=== PATIENT | female | born 1965 | race Two or more races ===

== ENCOUNTER 2021-10-25 00:33 | Emergency (ER) | payer BC ==
[~2021-10-25] VITALS: Ht 160 cm; Wt 86.2 kg
[~2021-10-25 00:33] MED LIST: CEFT1INJ33 IV; FENO145T27 PO; GLIM4TAB42 PO; METF-370 PO; NIFE90TA49 PO; SPIR50TA5 PO
[2021-10-25] MEDS ORDERED: NIFEdipine 10 MG CAP PO ONE ×2 (01:15→02:15)
[2021-10-25 01:30] LABS: Basophils # (auto) 0.1 10 ^3/uL (0-0.2); Basophils % (auto) 1.4 % (0.0-2.0); Eosinophils # (auto) 0.1 10 ^3/uL (0-0.8); Eosinophils % (auto) 1.9 % (0.0-7.0); Hematocrit 42.6 % (36.0-46.0); Hemoglobin 15.1 g/dL (12.2-16.2); Lymphocytes # (auto) 2.7 10 ^3/uL (0.4-5.4); Lymphocytes % (auto) 34.9 % (10.0-50.0); Mean Corpuscular Hemoglobin 31.5 pg (28.0-32.0); Mean Corpuscular Hgb Conc. 35.4 g/dL (32.0-36.0); Mean Corpuscular Volume 88.9 fL (80.0-100.0); Monocytes # (auto) 0.6 10 ^3/uL (0-1.3); Monocytes % (auto) 7.6 % (0.0-12.0); Neutrophils # (auto) 4.2 10 ^3/uL (1.6-8.6); Neutrophils % (auto) 54.2 % (37.0-80.0); Nucleated Red Blood Cells % 0.1 %; Red Cell Distribution Width 13.6 % (11.8-14.3); White Blood Cell 7.7 10^3/uL (4.4-10.8)
[2021-10-25 01:49] LABS: Albumin 3.3 g/dL (3.4-5.0); Calcium 8.8 mg/dL (8.5-10.1); Potassium 4.1 mmol/L (3.5-5.1)
[2021-10-25 01:54] LABS: BUN/Creatinine Ratio 18.9; Bilirubin, Total 0.4 mg/dL (0.2-1.0); Total Protein 7.4 g/dL (6.4-8.2)
[2021-10-25] MEDS ORDERED: SODIUM CHLORIDE 0.9% 1,000 ML IV ONE (02:15)
[2021-10-25] MEDS ORDERED: ENALAPRILAT 1.25 MG/ML-1ML VIAL IV ONE (02:15)
[2021-10-25] MEDS ORDERED: InsuLIN REG 1unit/0.01ml Soln (100units/ml) IV ONE (02:15)
[2021-10-25 04:00] VITALS: BP 168/90
== END 2021-10-25 04:18 | disposition home or self-care (01) ==
LOC: ER 00:39
DX: I10 Essential (primary) hypertension (principal); E11.9 Type 2 diabetes mellitus without complications; E78.5 Hyperlipidemia, unspecified
CPT/HCPCS: 36415; 71045; 80053; 82962; 83880; 84484; 85025; 93005; 96361; 96374; 96375; 99285; J1815; J7030

== ENCOUNTER → 2021-12-21 | Outpatient (CLI) | payer BC ==
[2021-12-21 07:57] LABS: Basophils # (auto) 0.1 10 ^3/uL (0-0.2); Basophils % (auto) 1.5 % (0.0-2.0); Eosinophils # (auto) 0.1 10 ^3/uL (0-0.8); Eosinophils % (auto) 1.9 % (0.0-7.0); Hematocrit 42.7 % (36.0-46.0); Hemoglobin 14.7 g/dL (12.2-16.2); Lymphocytes # (auto) 2.1 10 ^3/uL (0.4-5.4); Lymphocytes % (auto) 31.8 % (10.0-50.0); Mean Corpuscular Hemoglobin 30.2 pg (28.0-32.0); Mean Corpuscular Hgb Conc. 34.5 g/dL (32.0-36.0); Mean Corpuscular Volume 87.6 fL (80.0-100.0); Monocytes # (auto) 0.4 10 ^3/uL (0-1.3); Monocytes % (auto) 6.6 % (0.0-12.0); Neutrophils # (auto) 3.8 10 ^3/uL (1.6-8.6); Neutrophils % (auto) 58.2 % (37.0-80.0); Nucleated Red Blood Cells % 0.2 %; Red Blood Cells 4.87 10^6/uL (4.0-5.20); Red Cell Distribution Width 13.4 % (11.8-14.3); White Blood Cell 6.5 10^3/uL (4.4-10.8)
[2021-12-21 08:21] LABS: Albumin 3.7 g/dL (3.4-5.0); Calcium 9.5 mg/dL (8.5-10.1); Potassium 4.6 mmol/L (3.5-5.1)
[2021-12-21 08:26] LABS: BUN/Creatinine Ratio 23.1; Bilirubin, Total 0.4 mg/dL (0.2-1.0); Total Protein 7.6 g/dL (6.4-8.2)
[2021-12-22 08:39] LABS: Urine Bacteria FEW /hpf (None Seen); Urine Blood Negative /uL (Negative); Urine Mucus FEW (None Seen); Urine Specific Gravity 1.012 (1.001-1.035); Urine WBC 41 /hpf (0 - 5)
== END | disposition home or self-care (01) ==
LOC: LAB 06:58
PROVIDERS: ATTEND Student in an Organized Health Care Education/Training Program
DX: E11.9 Type 2 diabetes mellitus without complications (principal); I10 Essential (primary) hypertension
CPT/HCPCS: 36415; 80053; 80061; 81001; 82043; 83036; 84443; 85025

== ENCOUNTER 2022-03-04 08:19 | Inpatient (IN) | payer BC ==
[~2022-03-04] VITALS: Ht 160 cm; Wt 89.0 kg
[2022-03-04 09:11] LABS: Basophils # (auto) 0.1 10 ^3/uL (0-0.2); Eosinophils # (auto) 0.1 10 ^3/uL (0-0.8); Hematocrit 45.3 % (36.0-46.0); Lymphocytes # (auto) 2.5 10 ^3/uL (0.4-5.4); Lymphocytes % (auto) 21.9 % (10.0-50.0); Mean Corpuscular Hgb Conc. 35.4 g/dL (32.0-36.0); Mean Corpuscular Volume 84.6 fL (80.0-100.0); Monocytes # (auto) 0.6 10 ^3/uL (0-1.3); Neutrophils % (auto) 71.1 % (37.0-80.0); Nucleated Red Blood Cells % 2.3 %; Red Blood Cells 5.35 10^6/uL (4.0-5.20); White Blood Cell 11.3 10^3/uL (4.4-10.8)
[2022-03-04 09:30] LABS: BUN/Creatinine Ratio 18.1; Calcium 9.4 mg/dL (8.5-10.1); Potassium 3.9 mmol/L (3.5-5.1)
[2022-03-04] MEDS ORDERED: SODIUM CHLORIDE 0.9% 1,000 ML IV ONE ×2 (10:00→12:30)
[2022-03-04 11:38] LABS: Albumin 3.8 g/dL (3.4-5.0); Calcium 9.7 mg/dL (8.5-10.1); Magnesium 1.8 mg/dL (1.6-2.6)
[2022-03-04 11:40] LABS: BUN/Creatinine Ratio 16.9
[2022-03-04 11:53] LABS: Bilirubin, Total 0.6 mg/dL (0.2-1.0); Total Protein 7.9 g/dL (6.4-8.2)
[2022-03-04] MEDS ORDERED: SODIUM CHLORIDE 0.9% 2,000 ML IV ONE (12:15)
[2022-03-04] MEDS ORDERED: INSULIN LISPRO (HUMAN) 100 UNITS/ML ML SC ONE (12:15)
[2022-03-04] MEDS ORDERED: DEXTROSE (50%) 50ML SYRG IV PRN (12:30)
[2022-03-04] MEDS ORDERED: cefTRIAXone 1GM/50ML D5W 50 ML IV ONE (12:45)
[2022-03-04] MEDS ORDERED: LORazepam 2MG/ML-1ML VIAL IV PRN (15:45)
[2022-03-04 15:57] LABS: Cholesterol 197 mg/dL (< 200)
[2022-03-04 16:00] LABS: HDL Cholesterol 40 mg/dL (40-59); Triglycerides 422 mg/dL (< 150)
[2022-03-04] MEDS: InsuLIN REG 1unit/0.01ml Soln (100units/ml) SC SCH ×2 (17:00→21:46)
[2022-03-04 17:10] VITALS: BP 160/80
[2022-03-04] MEDS: ACCU-CHEK COMFORT CURVE STRIP VI SCH ×2 (18:15→21:56)
[2022-03-04 18:36] VITALS: BP 118/72
[2022-03-04] MEDS ORDERED: LISI20TA28 PO (19:59)
[2022-03-04] MEDS ORDERED: ATOR40TA52 PO (20:06)
[2022-03-04] MEDS ORDERED: INSUINJ37 SC (20:06)
[2022-03-04] MEDS ORDERED: LISI40TA11 PO (20:06)
[2022-03-04 20:20] VITALS: BP 118/72
[2022-03-04 21:34] VITALS: BP 154/95
[2022-03-04] MEDS: ATORVASTATIN 20 MG TAB PO SCH (21:37)
[2022-03-05] VITALS (9 sets, daily range): BP systolic 133–195; BP diastolic 74–105
[2022-03-05] MEDS: hydrALAZINE HCL 20 MG/ML VL IV PRN ×2 (04:54→17:58)
[2022-03-05] MEDS: InsuLIN REG 1unit/0.01ml Soln (100units/ml) SC SCH ×4 (06:36→21:44)
[2022-03-05] MEDS: ACCU-CHEK COMFORT CURVE STRIP VI SCH ×4 (06:37→21:49)
[2022-03-05] MEDS: metFORMIN HYDROCHLORIDE 500 MG TAB PO SCH ×2 (06:37→17:55)
[2022-03-05] MEDS: GLIMEPIRIDE 2 MG TAB PO SCH ×2 (06:38→17:51)
[2022-03-05] MEDS: ENOXAPARIN SOD 40 MG/0.4 ML SYRINGE SC SCH (09:58)
[2022-03-05] MEDS: cefTRIAXone 1GM/50ML D5W 50 ML IV SCH (09:59)
[2022-03-05] MEDS: ASPirin 81 mg TAB PO SCH (09:59)
[2022-03-05] MEDS ORDERED: cloNIDine HCL 0.1 MG TAB PO ONE (12:45)
[2022-03-05 13:24] LABS: Urine Bacteria FEW /hpf (None Seen); Urine Blood Negative /uL (Negative); Urine Mucus FEW (None Seen); Urine Specific Gravity 1.019 (1.001-1.035)
[2022-03-05 13:29] LABS: Urine WBC None Seen /hpf (0 - 5)
[2022-03-05] MEDS ORDERED: NIFEdipine ER 30 MG TAB PO SCH (13:30)
[2022-03-05 13:39] LABS: Alcohol, Urine < 3.0 mg/dL (0-10); Amphetamine Screen, Urine NEGATIVE (NEGATIVE); Barbiturate Scree,Urine NEGATIVE (NEGATIVE); Benzodiazephine Screen, Urine NEGATIVE (NEGATIVE); Cannabinoid Screen, Urine NEGATIVE (NEGATIVE); Cocaine Screen, Urine NEGATIVE (NEGATIVE); Opiate Scree,Urine NEGATIVE (NEGATIVE); Phencyclidine Screen, Urine NEGATIVE (NEGATIVE)
[2022-03-05] MEDS: LISINOPRIL 20 MG TAB PO SCH (14:11)
[2022-03-05] MEDS ORDERED: NIFE1TAB30 PO (14:14)
[2022-03-05] MEDS: NIFEdipine ER 30 MG TAB PO SCH (14:17)
[2022-03-05] MEDS: ATORVASTATIN 20 MG TAB PO SCH (21:47)
[2022-03-05] MEDS ORDERED: METOPROLOL TARTRATE 50 MG TAB PO SCH (22:00)
[2022-03-05] MEDS ORDERED: InsuLIN REG 1unit/0.01ml Soln (100units/ml) IV ONE (23:00)
[2022-03-06 05:00] VITALS: BP 135/79
[2022-03-06] MEDS: GLIMEPIRIDE 2 MG TAB PO SCH ×2 (06:25→18:00)
[2022-03-06] MEDS: InsuLIN REG 1unit/0.01ml Soln (100units/ml) SC SCH ×4 (06:27→22:25)
[2022-03-06] MEDS ORDERED: ACETAMINOPHEN 500 MG TAB PO PRN (06:30)
[2022-03-06] MEDS: ACCU-CHEK COMFORT CURVE STRIP VI SCH ×4 (06:34→22:25)
[2022-03-06] MEDS: metFORMIN HYDROCHLORIDE 500 MG TAB PO SCH ×2 (06:34→18:01)
[2022-03-06] MEDS: LISINOPRIL 20 MG TAB PO SCH (10:27)
[2022-03-06] MEDS: NIFEdipine ER 30 MG TAB PO SCH (10:28)
[2022-03-06] MEDS: ENOXAPARIN SOD 40 MG/0.4 ML SYRINGE SC SCH (10:28)
[2022-03-06] MEDS: cefTRIAXone 1GM/50ML D5W 50 ML IV SCH (10:29)
[2022-03-06] MEDS: ASPirin 81 mg TAB PO SCH (10:29)
[2022-03-06] MEDS: ATORVASTATIN 20 MG TAB PO SCH ×2 (11:30→22:25)
[2022-03-06 17:00] VITALS: BP 145/73
[2022-03-06] MEDS: cloNIDine HCL 0.1 MG TAB PO PRN (21:52)
[2022-03-06 22:00] VITALS: BP 161/80
[2022-03-06 23:30] VITALS: BP 129/77
[2022-03-07 03:27] LABS: Basophils # (auto) 0.1 10 ^3/uL (0-0.2); Basophils % (auto) 0.9 % (0.0-2.0); Eosinophils # (auto) 0.2 10 ^3/uL (0-0.8); Eosinophils % (auto) 1.9 % (0.0-7.0); Hemoglobin 13.3 g/dL (12.2-16.2); Lymphocytes # (auto) 2.4 10 ^3/uL (0.4-5.4); Lymphocytes % (auto) 28.6 % (10.0-50.0); Mean Corpuscular Hemoglobin 30.3 pg (28.0-32.0); Mean Corpuscular Hgb Conc. 35.9 g/dL (32.0-36.0); Mean Corpuscular Volume 84.3 fL (80.0-100.0); Monocytes # (auto) 0.4 10 ^3/uL (0-1.3); Neutrophils # (auto) 5.3 10 ^3/uL (1.6-8.6); Neutrophils % (auto) 63.6 % (37.0-80.0); Nucleated Red Blood Cells % 0.1 %; Red Blood Cells 4.39 10^6/uL (4.0-5.20); Red Cell Distribution Width 13.9 % (11.8-14.3); White Blood Cell 8.3 10^3/uL (4.4-10.8)
[2022-03-07 03:47] LABS: Albumin 2.8 g/dL (3.4-5.0); BUN/Creatinine Ratio 26.7; Calcium 8.5 mg/dL (8.5-10.1); Potassium 4.2 mmol/L (3.5-5.1)
[2022-03-07 03:48] LABS: INR 0.96 (0.9-1.15); Partial Thromboplastin Time 25.4 sec (23.6-33.0)
[2022-03-07 03:50] LABS: Bilirubin, Total 0.4 mg/dL (0.2-1.0)
[2022-03-07 05:00] VITALS: BP 129/78
[2022-03-07] MEDS: InsuLIN REG 1unit/0.01ml Soln (100units/ml) SC SCH ×4 (06:09→22:50)
[2022-03-07] MEDS: metFORMIN HYDROCHLORIDE 500 MG TAB PO SCH ×2 (06:25→16:49)
[2022-03-07] MEDS: GLIMEPIRIDE 2 MG TAB PO SCH ×2 (06:26→16:49)
[2022-03-07] MEDS: ACCU-CHEK COMFORT CURVE STRIP VI SCH ×4 (06:27→22:47)
[2022-03-07 09:00] VITALS: BP 138/76
[2022-03-07] MEDS: cefTRIAXone 1GM/50ML D5W 50 ML IV SCH (09:17)
[2022-03-07 13:00] VITALS: BP 145/75
[2022-03-07] MEDS ORDERED: MIDAZOLAM HCL 2MG/2ML 2ml VIAL (1mg/ml) IV ONE (14:00)
[2022-03-07 16:16] VITALS: BP 154/79
[2022-03-07] MEDS: ASPirin 81 mg TAB PO SCH (16:36)
[2022-03-07] MEDS: LISINOPRIL 20 MG TAB PO SCH (16:36)
[2022-03-07] MEDS: NIFEdipine ER 30 MG TAB PO SCH (16:36)
[2022-03-07] MEDS: ENOXAPARIN SOD 40 MG/0.4 ML SYRINGE SC SCH (16:37)
[2022-03-07 17:00] VITALS: BP 149/82
[2022-03-07] MEDS: cloNIDine HCL 0.1 MG TAB PO PRN (21:02)
[2022-03-07 22:00] VITALS: BP 162/75
[2022-03-07] MEDS: ATORVASTATIN 20 MG TAB PO SCH (22:47)
[2022-03-08 04:36] VITALS: BP 113/68
[2022-03-08] MEDS: InsuLIN REG 1unit/0.01ml Soln (100units/ml) SC SCH ×2 (06:12→12:03)
[2022-03-08 08:45] VITALS: BP 152/88
[2022-03-08] MEDS: NIFEdipine ER 30 MG TAB PO SCH (09:41)
[2022-03-08] MEDS: LISINOPRIL 20 MG TAB PO SCH (09:42)
[2022-03-08] MEDS: ASPirin 81 mg TAB PO SCH (09:42)
[2022-03-08] MEDS: ENOXAPARIN SOD 40 MG/0.4 ML SYRINGE SC SCH (09:42)
[2022-03-08] MEDS: ACCU-CHEK COMFORT CURVE STRIP VI SCH (12:02)
[2022-03-08 12:43] VITALS: BP 143/86
[2022-03-08 13:25] VITALS: BP 143/86
== END 2022-03-08 16:07 | disposition home or self-care (01) | DRG 65 ==
LOC: ER 08:19 → TELE 12:23 → TELE-WESTW 17:41
PROVIDERS: ADMIT Registered Nurse; ATTEND Family Medicine
PROC: B24BZZ4 Ultrasonography of Heart with Aorta, Transesophageal (ICD-10-PCS; principal; 2022-03-07)
DX: I63.9 Cerebral infarction, unspecified (principal); E87.2 Acidosis; G81.94 Hemiplegia, unspecified affecting left nondominant side; I10 Essential (primary) hypertension; E66.9 Obesity, unspecified; Z20.822 Contact with and (suspected) exposure to COVID-19; E11.21 Type 2 diabetes mellitus with diabetic nephropathy; E11.40 Type 2 diabetes mellitus with diabetic neuropathy, unspecified; E11.65 Type 2 diabetes mellitus with hyperglycemia; E78.00 Pure hypercholesterolemia, unspecified; E78.5 Hyperlipidemia, unspecified; F17.200 Nicotine dependence, unspecified, uncomplicated; G47.10 Hypersomnia, unspecified; R29.700 NIHSS score 0; Z68.34 Body mass index [BMI] 34.0-34.9, adult; Z79.4 Long term (current) use of insulin; Z79.82 Long term (current) use of aspirin; Z79.899 Other long term (current) drug therapy; Z82.49 Family history of ischemic heart disease and other diseases of the circulatory system; Z83.3 Family history of diabetes mellitus
CPT/HCPCS: 36415; 36600; 70450; 70551; 71045; 80048; 80053; 80061; 80307; 81001; 82010; 82805; 82962; 83735; 83880; 84484; 84702; 85025; 85610; 85730; 87040; 93005; 93306; 93312; 93886; 94660; 96361; 96365; 97163; 99152; 99291; G0378; J0696; J1815; J2250

== ENCOUNTER → 2022-05-17 | Outpatient (CLI) | payer BC ==
[~2022-05-17] MED LIST changes: +ATOR40TA52 PO; -FENO145T27 PO; +INSUINJ37 SC; +LISI40TA11 PO; +NIFE1TAB30 PO; -NIFE90TA49 PO; -SPIR50TA5 PO
[2022-05-17 10:03] LABS: Basophils # (auto) 0.1 10 ^3/uL (0-0.2); Basophils % (auto) 1.3 % (0.0-2.0); Eosinophils # (auto) 0.2 10 ^3/uL (0-0.8); Eosinophils % (auto) 2.7 % (0.0-7.0); Hematocrit 40.7 % (36.0-46.0); Hemoglobin 14.6 g/dL (12.2-16.2); Lymphocytes # (auto) 2.2 10 ^3/uL (0.4-5.4); Lymphocytes % (auto) 29.2 % (10.0-50.0); Mean Corpuscular Hemoglobin 30.9 pg (28.0-32.0); Mean Corpuscular Hgb Conc. 35.8 g/dL (32.0-36.0); Mean Corpuscular Volume 86.2 fL (80.0-100.0); Monocytes # (auto) 0.5 10 ^3/uL (0-1.3); Monocytes % (auto) 6.3 % (0.0-12.0); Neutrophils # (auto) 4.6 10 ^3/uL (1.6-8.6); Neutrophils % (auto) 60.5 % (37.0-80.0); Nucleated Red Blood Cells % 0.1 %; Red Blood Cells 4.72 10^6/uL (4.0-5.20); Red Cell Distribution Width 14.1 % (11.8-14.3); White Blood Cell 7.6 10^3/uL (4.4-10.8)
[2022-05-17 13:22] LABS: Anion Gap 11 (5-15); Blood Urea Nitrogen 19 mg/dL (7-18); Calcium 8.7 mg/dL (8.5-10.1); Carbon Dioxide 24 mmol/L (21-32); Chloride 102 mmol/L (98-107); Glucose 321 mg/dL (74-106); Potassium 3.8 mmol/L (3.5-5.1); Sodium 137 mmol/L (136-145)
[2022-05-17 13:25] LABS: BUN/Creatinine Ratio 31.1; Cholesterol 154 mg/dL (< 200); GFR African American 130 mL/min; GFR Non-African American 108 mL/min; HDL Cholesterol 32 mg/dL (40-59); Triglycerides 487 mg/dL (< 150)
[2022-05-17 14:58] LABS: Urine Blood Negative /uL (Negative); Urine Specific Gravity 1.036 (1.001-1.035)
== END | disposition home or self-care (01) ==
LOC: LAB 07:55
PROVIDERS: ATTEND Student in an Organized Health Care Education/Training Program
DX: Z12.11 Encounter for screening for malignant neoplasm of colon (principal); E11.9 Type 2 diabetes mellitus without complications; I10 Essential (primary) hypertension
CPT/HCPCS: 36415; 80048; 80061; 81003; 82043; 82274; 83036; 85025

== ENCOUNTER → 2022-09-14 | Outpatient (CLI) | payer BC ==
[2022-09-14 07:28] LABS: Basophils # (auto) 0.1 10 ^3/uL (0-0.2); Eosinophils # (auto) 0.2 10 ^3/uL (0-0.8); Eosinophils % (auto) 2.4 % (0.0-7.0); Hematocrit 40.5 % (36.0-46.0); Hemoglobin 14.3 g/dL (12.2-16.2); Lymphocytes # (auto) 2.5 10 ^3/uL (0.4-5.4); Lymphocytes % (auto) 29.7 % (10.0-50.0); Mean Corpuscular Hemoglobin 31.1 pg (28.0-32.0); Mean Corpuscular Hgb Conc. 35.4 g/dL (32.0-36.0); Mean Corpuscular Volume 87.7 fL (80.0-100.0); Monocytes # (auto) 0.6 10 ^3/uL (0-1.3); Monocytes % (auto) 7.1 % (0.0-12.0); Neutrophils # (auto) 5.1 10 ^3/uL (1.6-8.6); Neutrophils % (auto) 59.8 % (37.0-80.0); Nucleated Red Blood Cells % 0.1 %; Red Blood Cells 4.62 10^6/uL (4.0-5.20); Red Cell Distribution Width 13.8 % (11.8-14.3); White Blood Cell 8.5 10^3/uL (4.4-10.8)
[2022-09-14 07:57] LABS: BUN/Creatinine Ratio 17.6; Calcium 8.8 mg/dL (8.5-10.1); Potassium 3.9 mmol/L (3.5-5.1)
[2022-09-14 15:02] LABS: Urine Bacteria FEW /hpf (None Seen); Urine Blood Negative /uL (Negative); Urine Hyaline Cast FEW /lpf (0 - 2); Urine Mucus FEW (None Seen); Urine Specific Gravity 1.015 (1.001-1.035); Urine WBC 12 /hpf (0 - 5)
== END | disposition home or self-care (01) ==
LOC: LAB 07:11
PROVIDERS: ATTEND Student in an Organized Health Care Education/Training Program
DX: E11.9 Type 2 diabetes mellitus without complications (principal); I10 Essential (primary) hypertension
CPT/HCPCS: 36415; 80048; 81001; 82043; 83036; 85025